=== PATIENT | male | born 1995 | race Caucasian/White ===

== ENCOUNTER 2017-01-02 17:42 | Emergency (ER) | payer BC ==
[~2017-01-02] VITALS: Ht 167.6 cm; Wt 59.0 kg
[2017-01-02 17:44] VITALS: BP 140/90; PULSE 91; RESP 18; TEMP 97.8; O2SAT 100
[2017-01-02] MEDS ORDERED: ZIDOVUDINE 100 MG CAP PO ONE (20:30)
[2017-01-02] MEDS ORDERED: LOPINAVIR/RITONAVIR 200 MG/50 MG TAB PO ONE (20:30)
--- NOTE | 2017-01-02 20:43 | PD ---
HPI Chief Complaint: Exposure to Blood/Body Fluids Time Seen by Provider: 20:34 Travel History International Travel<30 days: No Contact w/Intl Traveler<30days: No Traveled to known affect area: No History of Present Illness HPI 21-year-old white male presents to emergency department requesting postexposure prophylaxis after having oral intercourse with a known HIV positive male last evening sometime around 2 AM. He states that after he had performed oral sex on the individual he was informed that the patient had HIV and did not know what his viral load was. The patient states that he does not have HIV himself. He states that he is currently taking Keflex for a rash. He denies any medical complaints at this time otherwise. PFS Past Medical History Medical History: Denies Significant Hx Tetanus Vaccination: < 5 Years Past Surgical History Surgical History: No Previous Surgery Social History Alcohol Use: No Tobacco Use: No Allergies-Medications (Allergen,Severity, Reaction): Coded Allergies: No Known Allergies (Unverified , 01/02/17) Review of Systems Except as stated in HPI: all other systems reviewed are Neg Skin: Positive Rash Physical Exam Narrative GENERAL: This is a well-nourished, well-developed patient, in no apparent distress. SKIN: No rashes, ecchymoses or lesions. Warm and dry. HEAD: Atraumatic. Normocephalic. EYES: PERRL, EOMI, no discharge or injection. No scleral icterus. EARS: Clear NOSE: Nasal turbinates appear normal. THROAT: Mucosa pink and moist. Airway patent. NECK: Trachea midline. supple, moves head freely. LUNGS: Clear to auscultation. CV: Regular in rhythm. ABDOMEN: Soft nontender. EXT: No clubbing cyanosis or edema. Data Data Last Documented VS Vital Signs Date Time Temp Pulse Resp B/P Pulse Ox O2 Delivery O2 Flow Rate FiO2 01/02/17 17:44 97.8 91 18 140/90 100 Room Air Orders Complete Blood Count With Diff (01/02/17 20:29) Comprehensive Metabolic Panel (01/02/17 20:29) Lamivudine (Epivir) (01/02/17 20:30) Zidovudine (Retrovir) (01/02/17 20:30) Lopinavir-Ritonavir 200-50 Mg (Kaletra 2 (3/1/17 20:30) MDM Medical Decision Making Medical Screen Exam Complete: Yes Emergency Medical Condition: Yes Medical Record Reviewed: Yes Differential Diagnosis Differential diagnoses: HIV exposure, hepatitis exposure, STD exposure Narrative Course Agreed to treat the patient with his first dose of post exposure prophylaxis medicine. Have consult to Dr. Mariano who agrees with the treatment plan of follow-up today. The patient will be referred to the health Department first thing in the morning for HIV testing and prescriptions for his prophylaxis. 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 Partner notification. Follow-up with the [facility] for further STD testing such as HIV, syphilis and hepatitis. Prescription for HIV medication through the health Department.. Always use a condom. Return to the ER if any problems. Med/Other Pt SpecificInfo: Existing Med Changed Disposition: 01 DISCHARGE HOME Condition: Stable Jose Guadalupe Schultz Jan 02, 2017 20:43
[2017-01-02 22:07] LABS: ANION GAP 10 MEQ/L (5-15); AST (GOT) 32 U/L (15-37); BICARBONATE 24.1 MEQ/L (21.0-32.0); BLOOD UREA NITROGEN 11 MG/DL (7-18); CHLORIDE 103 MEQ/L (98-107); GLOMERULAR FILTRATION RATE 85 ML/MIN (>89); POTASSIUM 4.2 MEQ/L (3.5-5.1); SODIUM (NA) 137 MEQ/L (136-145)
[2017-01-02 22:10] LABS: ALKALINE PHOSPHATASE 75 U/L (45-117); ALT (GPT) 24 U/L (12-78); TOTAL BILIRUBIN ADULT 1.1 MG/DL (0.2-1.0)
[2017-01-03] MEDS ORDERED: KALETRA200 PO (18:32)
[2017-01-03] MEDS ORDERED: RETR100C PO (18:32)
[2017-01-03] MEDS ORDERED: LAMI150 PO (18:32)
== END 2017-01-02 21:34 | disposition home or self-care (01) ==
LOC: NEPB 17:42
DX: Z20.6 Contact with and (suspected) exposure to human immunodeficiency virus [HIV] (principal); R21 Rash and other nonspecific skin eruption
CPT/HCPCS: 80053; 99283

== ENCOUNTER 2017-01-03 16:16 | Emergency (ER) | payer BC ==
[2017-01-03 16:18] VITALS: BP 128/87; PULSE 68; RESP 16; TEMP 97.3; O2SAT 99
--- NOTE | 2017-01-03 18:17 | PD ---
HPI Chief Complaint: Exposure to Blood/Body Fluids Time Seen by Provider: 18:17 Travel History International Travel<30 days: No Contact w/Intl Traveler<30days: No Traveled to known affect area: No History of Present Illness HPI 21-year-old male patient presents to the emergency department for second time today for exposure to blood-borne pathogen. Patient engaged in oral sex last evening in the director of people [employer], and then was informed that the sexual partner was HIV positive. The HIV viral load is unknown. Patient was given his first dose of EPIVIR 150MG,RETROVIR 300MG.AND LOPNAVIR-RITOROVIR 2 tabs by mouth. Patient was then instructed to the health Department which he states he did today and sent in for 7 hours, he had repeat labs drawn at that time. Patient is having trouble getting medications. Supposedly there is an issue with his insurance. Patient has no other acute medical problems. Has no known drug allergies. PFSH Past Medical History Diminished Hearing: No Immunizations Current: Yes Social History Alcohol Use: No Tobacco Use: No Substance Use: No Allergies-Medications (Allergen,Severity, Reaction): Coded Allergies: No Known Allergies (Unverified , 01/02/17) Review of Systems Except as stated in HPI: all other systems reviewed are Neg General / Constitutional: No: Fever Eyes: No: Visual changes HENT: No: Headaches Cardiovascular: No: Chest Pain or Discomfort Respiratory: No: Shortness of Breath Gastrointestinal: No: Abdominal Pain Genitourinary: No: Dysuria Musculoskeletal: No: Pain Skin: No Rash Neurologic: No: Weakness Psychiatric: No: Depression Endocrine: No: Polydipsia Hematologic/Lymphatic: No: Easy Bruising Physical Exam Narrative GENERAL: Patient appears in no acute distress. SKIN: Warm and dry. Normal color. Normal turgor. HEAD: Atraumatic. Normocephalic. EYES: Pupils equal and round. No scleral icterus. No injection or drainage. ENT: No nasal bleeding or discharge. Mucous membranes pink and moist. Pharynx is normal. NECK: Trachea midline. No JVD. CARDIOVASCULAR: Regular rate and rhythm. RESPIRATORY: No accessory muscle use. Clear to auscultation. Breath sounds equal bilaterally. MUSCULOSKELETAL: Extremities without clubbing, cyanosis, or edema. No obvious deformities. NEUROLOGICAL: Awake and alert. No obvious cranial nerve deficits. Motor grossly within normal limits. Five out of 5 muscle strength in the arms and legs. Normal speech. PSYCHIATRIC: Appropriate mood and affect; insight and judgment normal. Data Data Last Documented VS Vital Signs Date Time Temp Pulse Resp B/P Pulse Ox O2 Delivery O2 Flow Rate FiO2 01/03/17 16:18 97.3 68 16 128/87 99 Room Air Orders Lamivudine (Epivir) (01/03/17 18:30) Zidovudine (Retrovir) (01/03/17 18:30) Lopinavir-Ritonavir 200-50 Mg (Kaletra 2 (01/03/17 18:30) MDM Medical Decision Making Medical Screen Exam Complete: Yes Emergency Medical Condition: Yes Differential Diagnosis Exposure to bodily fluids. STD. Possible HIV exposure. Narrative Course Patient is medically stable at time of exam. Patient is given repeat dose of Epivir 150 mg by mouth as well as Retrovir 300 mg by mouth, and Kaletra 200/52 tabs by mouth. Patient was given enough of the above medications for 5 days. Patient is instructed to once again follow with the health department for further monitoring and medication prescriptions. I reiterated to the patient that we cannot do long-term treatment of his issue as we are an emergency Department, and he needs to be followed by either her primary care physician or health department. 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 Patient was given enough of the above medications for 5 days. Patient is instructed to once again follow with the health department for further monitoring and medication prescriptions. I reiterated to the patient that we cannot do long-term treatment of his issue as we are an emergency Department, and he needs to be followed by either her primary care physician or health department. Med/Other Pt SpecificInfo: Prescription(s) given Disposition: 01 DISCHARGE HOME Condition: Stable Yahir Curry Jan 03, 2017 18:17
[2017-01-03] MEDS ORDERED: ZIDOVUDINE 100 MG CAP PO ONE (18:30)
[2017-01-03] MEDS ORDERED: LOPINAVIR/RITONAVIR 200 MG/50 MG TAB PO ONE (18:30)
[2017-01-03] MEDS ORDERED: RETR100C PO (18:32)
[2017-01-03] MEDS ORDERED: KALETRA200 PO (18:32)
[2017-01-03] MEDS ORDERED: LAMI150 PO (18:32)
== END 2017-01-03 18:48 | disposition home or self-care (01) ==
LOC: NEPB 16:16
DX: Z20.6 Contact with and (suspected) exposure to human immunodeficiency virus [HIV] (principal)
CPT/HCPCS: 99281

== ENCOUNTER 2017-02-08 04:13 | Emergency (ER) | payer BC ==
[~2017-02-08] VITALS: Ht 167.6 cm; Wt 59.0 kg
[~2017-02-08 04:13] MED LIST: KALETRA200 PO; LAMI150 PO; RETR100C PO
[2017-02-08 04:16] VITALS: BP 138/84; PULSE 92; RESP 16; TEMP 98.1; O2SAT 100
[2017-02-08] MEDS ORDERED: EMTR1TAB6 PO (04:37)
[2017-02-08] MEDS ORDERED: AMOX875T PO (04:38)
--- NOTE | 2017-02-08 04:38 | PD ---
HPI Chief Complaint: Abdominal Pain Time Seen by Provider: 04:22 Travel History International Travel<30 days: No Contact w/Intl Traveler<30days: No Traveled to known affect area: No History of Present Illness HPI Otherwise healthy 21-year-old man who presents to the emergency department complaining of left-sided abdominal pain times a couple hours tonight associated with diarrhea that started yesterday and a couple episodes of nausea vomiting. He describes about 10 episodes of loose stools over the past 24 hours. No urinary changes. No other complaints. He recently completed HIV prophylaxis following sexual exposure to known HIV positive individual with Kaletra and Truvada. He initially was yesterday. He also recently started amoxicillin 875 mg for widespread scabies along with promethazine cream. He started the amoxicillin 2 days ago. States he otherwise had been feeling generally well and healthy. No other complaints. History Past Medical History Medical History: Denies Significant Hx Past Surgical History Surgical History: No Previous Surgery Social History Alcohol Use: No Tobacco Use: No Allergies-Medications (Allergen,Severity, Reaction): Coded Allergies: No Known Allergies (Unverified , 02/08/17) Reported Meds & Prescriptions Reported Meds & Active Scripts Active Kaletra (Lopinavir/Ritonavir) 200-50 Mg Tab 2 Tab PO Q12HR 5 Days Fill this 5 day prescription first & begin taking Kaletra 12 hours after the first dose received in the Emergency Department as prescribed. Reported Amoxicillin 875 Mg Tab 875 Mg PO BID Review of Systems Except as stated in HPI: all other systems reviewed are Neg Physical Exam Narrative GENERAL: Well-appearing 21-year-old man, no acute distress. SKIN: Focused skin assessment warm/dry. HEAD: Atraumatic. Normocephalic. CARDIOVASCULAR: Regular rate and rhythm. No murmur appreciated. RESPIRATORY: No accessory muscle use. Clear to auscultation. Breath sounds equal bilaterally. GASTROINTESTINAL: Abdomen is flat and soft. Mild left-sided tenderness. No rebound or guarding. MUSCULOSKELETAL: No obvious deformities. No clubbing. No cyanosis. No edema. NEUROLOGICAL: Awake and alert. No obvious cranial nerve deficits. Motor grossly within normal limits. Normal speech. PSYCHIATRIC: Appropriate mood and affect; insight and judgment normal. Data Data Last Documented VS Vital Signs Date Time Temp Pulse Resp B/P Pulse Ox O2 Delivery O2 Flow Rate FiO2 4/7/17 04:33 16 02/08/17 04:16 98.1 92 138/84 100 Room Air Orders Complete Blood Count With Diff (02/08/17 04:31) Comprehensive Metabolic Panel (02/08/17 04:31) Iv Access Insert/Monitor (02/08/17 04:31) Sodium Chlor 0.9% 1000 Ml Inj (Ns 1000 M (02/08/17 04:45) Ketorolac Inj (Toradol Inj) (02/08/17 04:45) Ondansetron Inj (Zofran Inj) (02/08/17 04:45) Labs Laboratory Tests Test 02/08/17 04:43 White Blood Count 10.4 TH/MM3 Red Blood Count 5.52 MIL/MM3 Hemoglobin 15.7 GM/DL Hematocrit 46.3 % Mean Corpuscular Volume 83.9 FL Mean Corpuscular Hemoglobin 28.4 PG Mean Corpuscular Hemoglobin 33.9 % Concent Red Cell Distribution Width 17.1 % Platelet Count 217 TH/MM3 Mean Platelet Volume 8.0 FL Neutrophils (%) (Auto) 57.3 % Lymphocytes (%) (Auto) 25.3 % Monocytes (%) (Auto) 10.4 % Eosinophils (%) (Auto) 6.5 % Basophils (%) (Auto) 0.5 % Neutrophils # (Auto) 6.0 TH/MM3 Lymphocytes # (Auto) 2.6 TH/MM3 Monocytes # (Auto) 1.1 TH/MM3 Eosinophils # (Auto) 0.7 TH/MM3 Basophils # (Auto) 0.1 TH/MM3 CBC Comment AUTO DIFF Differential Total Cells 100 Counted Neutrophils % (Manual) 58 % Band Neutrophils % 2 % Lymphocytes % 20 % Monocytes % 11 % Eosinophils % 6 % Neutrophils # (Manual) 6.6 TH/MM3 Metamyelocytes 3 % Differential Comment FINAL DIFF MANUAL Platelet Estimate NORMAL Platelet Morphology Comment NORMAL Stomatocytes 1+ Sodium Level 139 MEQ/L Potassium Level 4.0 MEQ/L Chloride Level 99 MEQ/L Carbon Dioxide Level 30.2 MEQ/L Anion Gap 10 MEQ/L Blood Urea Nitrogen 11 MG/DL Creatinine 1.31 MG/DL Estimat Glomerular Filtration 69 ML/MIN Rate Random Glucose 100 MG/DL Calcium Level 10.0 MG/DL Total Bilirubin 0.6 MG/DL Aspartate Amino Transf 28 U/L (AST/SGOT) Alanine Aminotransferase 23 U/L (ALT/SGPT) Alkaline Phosphatase 74 U/L Total Protein 8.2 GM/DL Albumin 4.4 GM/DL [facility] Medical Decision Making Medical Screen Exam Complete: Yes Emergency Medical Condition: Yes Interpretation(s) LABS: CBC is unremarkable. CMP is unremarkable. Differential Diagnosis Colitis, enteritis, diverticulitis, adverse medication effect, other Narrative Course Medical decision making INITIAL calls a 21-year-old man who presents to the emergency department complaining of some diarrhea and left-sided abdominal pain. He likely is having adverse effects amoxicillin. Enteritis or colitis also possible. We'll check screening labs. Recommended supportive treatment. May need to stop the amoxicillin. Diagnosis Primary Impression: Left sided abdominal pain Additional Impression: Diarrhea Additional Instructions: Take Bentyl as needed for abdominal pain. Take loperamide as needed for diarrhea. If symptoms persist or worsening, stop amoxicillin. Return to the emergency department for any new or worsening symptoms. Scripts Loperamide 2 Mg Tab2 Mg PO DIRECTED PRN (DIARRHEA) #8 TAB One tablet after each loose stool. Not to exceed 8 tablets per day. Prov:Kirk Galvez MD 02/08/17 Dicyclomine (Bentyl)20 Mg Tab20 Mg PO QID PRN (ABDOMINAL CRAMPING) #20 TAB Prov:Kirk Galvez MD 02/08/17 Disposition: 01 DISCHARGE HOME Condition: Stable Kirk Galvez MD Feb 08, 2017 04:38
[2017-02-08] MEDS ORDERED: SODIUM CHLOR 0.9% 1000 ML INJ 1,000 ML IV ONE (04:45)
[2017-02-08] MEDS ORDERED: ONDANSETRON HCL 4 MG/2 ML VIAL IV ONE (04:45)
[2017-02-08] MEDS ORDERED: KETOROLAC TROMETHAMINE 30 MG/ML (IVP) VIAL IVP ONE (04:45)
[2017-02-08 04:52] LABS: BASOPHIL # 0.1 TH/MM3 (0-0.2); BASOPHIL % 0.5 % (0.0-2.0); EOSINOPHIL # 0.7 TH/MM3 (0-0.4); EOSINOPHIL % 6.5 % (0.0-4.0); HEMATOCRIT 46.3 % (39.0-51.0); HEMO FLAGS AUTO DIFF; LYMPH % 25.3 % (9.0-44.0); LYMPHOCYTE # 2.6 TH/MM3 (1.0-4.8); MEAN CELL VOLUME 83.9 FL (80.0-100.0); MEAN CORPUSCULAR HEMOGLOBIN 28.4 PG (27.0-34.0); MEAN CORPUSCULAR HGB CONC 33.9 % (32.0-36.0); MONO % 10.4 % (0.0-8.0); NEUT % 57.3 % (16.0-70.0); PLATELET COUNT 217 TH/MM3 (150-450); RED BLOOD COUNT 5.52 MIL/MM3 (4.50-5.90); RED CELL DISTRIBUTION WIDTH 17.1 % (11.6-17.2); WHITE BLOOD COUNT 10.4 TH/MM3 (4.0-11.0)
[2017-02-08 05:28] LABS: BANDS 2 % (0-6); EOSINOPHILS 6 % (0-4); METAMYELOCYTES 3 % (0-1); NEUTROPHIL # MANUAL DIFF 6.6 TH/MM3 (1.8-7.7); POLYS (SEG NEUTROPHILS) 58 % (16-70); WBC DIFF SAMPLE 100
[2017-02-08 05:30] LABS: PLATELET ESTIMATE SMEAR NORMAL (NORMAL); PLATELET MORPHOLOGY NORMAL (NORMAL)
[2017-02-08 05:31] LABS: SCAN/DIFF FINAL DIFF MANUAL; STOMATOCYTES 1+ (NORMAL)
[2017-02-08 05:39] LABS: ALKALINE PHOSPHATASE 74 U/L (45-117); ALT (GPT) 23 U/L (12-78); ANION GAP 10 MEQ/L (5-15); AST (GOT) 28 U/L (15-37); BICARBONATE 30.2 MEQ/L (21.0-32.0); BLOOD UREA NITROGEN 11 MG/DL (7-18); CHLORIDE 99 MEQ/L (98-107); GLOMERULAR FILTRATION RATE 69 ML/MIN (>89); SODIUM (NA) 139 MEQ/L (136-145); TOTAL BILIRUBIN ADULT 0.6 MG/DL (0.2-1.0)
[2017-02-08] MEDS ORDERED: LOPE2TAB3 PO (06:03)
[2017-02-08] MEDS ORDERED: BENT20TA PO (06:03)
== END 2017-02-08 06:37 | disposition home or self-care (01) ==
LOC: NEPC 04:13
DX: R10.9 Unspecified abdominal pain (principal); R19.7 Diarrhea, unspecified; Z20.6 Contact with and (suspected) exposure to human immunodeficiency virus [HIV]
CPT/HCPCS: 80053; 85007; 85027; 96374; 96375; 99284; J1885; J2405; J7030

== ENCOUNTER 2017-02-12 20:46 | Emergency (ER) | payer BC ==
[~2017-02-12] VITALS: Ht 167.6 cm; Wt 59.0 kg
[~2017-02-12 20:46] MED LIST changes: +AMOX875T PO; +BENT20TA PO; -LAMI150 PO; +LOPE2TAB3 PO; -RETR100C PO
[2017-02-12 20:50] VITALS: BP 122/77; PULSE 93; RESP 16; TEMP 98.3; O2SAT 99
--- NOTE | 2017-02-12 20:51 | PD ---
Physical Exam Time Seen by Provider: 20:50 Narrative 21 y/o male with LLQ abd pn for one hour. Here on february 08 with similar pain. VSS seen at triage desk. Awaiting bed placement. Data Data Last Documented VS Vital Signs Date Time Temp Pulse Resp B/P Pulse Ox O2 Delivery O2 Flow Rate FiO2 02/12/17 20:50 98.3 93 16 122/77 99 MDM Medical Record Reviewed: Yes Supervised Visit with ADILIA: Yes Yoni Ewing Feb 12, 2017 20:51
== END 2017-02-12 23:09 | disposition left against medical advice (07) ==
LOC: NED 20:46
DX: R10.32 Left lower quadrant pain (principal)
CPT/HCPCS: 99283